=== PATIENT | female | born 1975 | race African-American/Black ===

== ENCOUNTER → 2022-04-28 | Emergency (ER) | payer BC ==
[~2022-04-28] VITALS: Ht 172.7 cm; Wt 154.2 kg
[~2022-04-28] MED LIST: LISINOPRIL20 MG PO; METFORMIN HCL500 M4 PO; OZEMPIC0.25 MG/0. SQ; ROSUVASTATIN CA10 MG PO
== END | disposition left against medical advice (07) ==
LOC: ER 17:36
DX: M79.605 Pain in left leg (principal); Z86.72 Personal history of thrombophlebitis